=== PATIENT | female | born 1990 | race Caucasian/White ===

== ENCOUNTER 2020-04-27 11:27 | Observation (INO) | payer MEDICAID ==
[~2020-04-27] VITALS: Ht 170.2 cm; Wt 104.8 kg
[~2020-04-27 11:27] MED LIST: BIRTH CONTROL
[2020-04-27] MEDS ORDERED: BETAMETHASONE ACET (6MG/ML) 5ML VIAL IM ONE (12:45)
[2020-04-28] MEDS ORDERED: PREN-96 PO (14:30)
[2020-04-28] MEDS ORDERED: FERR27TA2 PO (14:31)
[2020-04-28] MEDS ORDERED: FERR-7 PO (14:31)
[2020-04-28] MEDS ORDERED: OMEGCAP2 OR (14:32)
[2020-04-28] MEDS ORDERED: HYDR250I6 IM (14:33)
[2020-04-28] MEDS ORDERED: FOLITAB22 PO (14:52)
== END 2020-04-27 13:45 | disposition home or self-care (01) | DRG 566 ==
LOC: LDRP 11:27
PROVIDERS: ADMIT Specialist; ATTEND Specialist
DX: O42.913 Preterm premature rupture of membranes, unspecified as to length of time between rupture and onset of labor, third trimester (principal); Z3A.29 29 weeks gestation of pregnancy
CPT/HCPCS: 59025; 81002; 84112; 96372; G0378; J0702; Q0114

== ENCOUNTER 2020-04-28 13:19 | Observation (INO) | payer MEDICAID ==
[2020-04-28] MEDS ORDERED: BETAMETHASONE ACET (6MG/ML) 5ML VIAL IM ONE (13:30)
[2020-04-28] MEDS ORDERED: PREN-96 PO (14:30)
[2020-04-28] MEDS ORDERED: FERR-7 PO (14:31)
[2020-04-28] MEDS ORDERED: FERR27TA2 PO (14:31)
[2020-04-28] MEDS ORDERED: OMEGCAP2 OR (14:32)
[2020-04-28] MEDS ORDERED: HYDR250I6 IM (14:33)
[2020-04-28] MEDS ORDERED: FOLITAB22 PO (14:52)
== END 2020-04-28 14:24 | disposition home or self-care (01) | DRG 563 ==
LOC: LDRP 13:19
PROVIDERS: ADMIT Specialist; ATTEND Specialist
DX: O60.03 Preterm labor without delivery, third trimester (principal); Z3A.29 29 weeks gestation of pregnancy
CPT/HCPCS: 59025; 81002; 96372; G0378

== ENCOUNTER 2020-05-03 10:47 | Observation (INO) | payer MEDICAID ==
[~2020-05-03 10:47] MED LIST changes: -BIRTH CONTROL; +FERR-7 PO; +FOLITAB22 PO; +HYDR250I6 IM; +OMEGCAP2 OR; +PREN-96 PO
== END 2020-05-03 11:33 | disposition home or self-care (01) | DRG 566 ==
LOC: LDRP 10:47
PROVIDERS: ADMIT Specialist; ATTEND Specialist
DX: O23.43 Unspecified infection of urinary tract in pregnancy, third trimester (principal); O60.03 Preterm labor without delivery, third trimester; O24.410 Gestational diabetes mellitus in pregnancy, diet controlled; Z91.040 Latex allergy status; Z3A.30 30 weeks gestation of pregnancy
CPT/HCPCS: 59025; 81002; 82948; 82962; 87086; 87088; 87186; G0378

== ENCOUNTER 2020-05-09 12:20 | Observation (INO) | payer MEDICAID | END 2020-05-09 13:30 | disposition home or self-care (01) | DRG 563 | LOC: LDRP 12:20 | PROVIDERS: ADMIT Specialist; ATTEND Specialist | DX: O60.03 Preterm labor without delivery, third trimester (principal); Z91.040 Latex allergy status; Z3A.31 31 weeks gestation of pregnancy | CPT/HCPCS: 59025; 81002; 82962; G0378 ==

== ENCOUNTER 2020-05-18 10:54 | Observation (INO) | payer MEDICAID | END 2020-05-18 12:38 | disposition home or self-care (01) | DRG 566 | LOC: LDRP 10:54 | PROVIDERS: ADMIT Specialist; ATTEND Specialist | DX: O24.410 Gestational diabetes mellitus in pregnancy, diet controlled (principal); O60.03 Preterm labor without delivery, third trimester; Z3A.32 32 weeks gestation of pregnancy | CPT/HCPCS: 59025; 76818; 81002; 82948; 82962; G0378 ==

== ENCOUNTER 2020-05-25 10:12 | Observation (INO) | payer MEDICAID | END 2020-05-25 14:20 | disposition home or self-care (01) | DRG 566 | LOC: XYW 10:12 → LDRP 13:06 | PROVIDERS: ADMIT Specialist; ATTEND Specialist | DX: O24.419 Gestational diabetes mellitus in pregnancy, unspecified control (principal); O60.03 Preterm labor without delivery, third trimester | CPT/HCPCS: 59025; 76818; 81002; 82948; 82962; G0378 ==

== ENCOUNTER 2020-05-31 11:18 | Observation (INO) | payer MEDICAID ==
[~2020-05-31] VITALS: Ht 170.2 cm; Wt 104.3 kg
[~2020-05-31 11:18] MED LIST changes: -HYDR250I6 IM
== END 2020-05-31 13:10 | disposition home or self-care (01) | DRG 566 ==
LOC: LDRP 11:18
PROVIDERS: ADMIT Specialist; ATTEND Specialist
DX: O24.410 Gestational diabetes mellitus in pregnancy, diet controlled (principal); O60.03 Preterm labor without delivery, third trimester; Z3A.34 34 weeks gestation of pregnancy
CPT/HCPCS: 59025; 76818; 81002; 82948; 82962; G0378

== ENCOUNTER 2020-06-07 12:09 | Observation (INO) | payer MEDICAID ==
[~2020-06-07] VITALS: Ht 170.2 cm; Wt 102.1 kg
== END 2020-06-07 13:30 | disposition home or self-care (01) ==
LOC: LDRP 12:09
PROVIDERS: ADMIT Specialist; ATTEND Specialist
DX: O60.03 Preterm labor without delivery, third trimester (principal); O24.410 Gestational diabetes mellitus in pregnancy, diet controlled; O99.323 Drug use complicating pregnancy, third trimester; F12.90 Cannabis use, unspecified, uncomplicated; Z91.040 Latex allergy status; Z87.891 Personal history of nicotine dependence; Z3A.35 35 weeks gestation of pregnancy
CPT/HCPCS: 59025; 76818; 82948; 82962; G0378; 81002

== ENCOUNTER 2020-06-13 12:47 | Observation (INO) | payer MEDICAID | END 2020-06-13 14:58 | disposition home or self-care (01) | LOC: LDRP 12:47 | PROVIDERS: ADMIT Specialist; ATTEND Specialist | DX: O24.410 Gestational diabetes mellitus in pregnancy, diet controlled (principal); O60.03 Preterm labor without delivery, third trimester; Z3A.36 36 weeks gestation of pregnancy | CPT/HCPCS: 59025; 76818; 81002; 82948; 82962; G0378 ==

== ENCOUNTER 2020-06-14 19:00 | Observation (INO) | payer MEDICAID ==
[~2020-06-14] VITALS: Ht 170.2 cm; Wt 103.0 kg
== END 2020-06-14 20:56 | disposition home or self-care (01) ==
LOC: LDRP 19:00
PROVIDERS: ADMIT Specialist; ATTEND Specialist
DX: O36.8130 Decreased fetal movements, third trimester, not applicable or unspecified (principal); Z3A.36 36 weeks gestation of pregnancy; Z79.899 Other long term (current) drug therapy
CPT/HCPCS: 59025; 76818; 81002; 82948; 82962; G0378

== ENCOUNTER 2020-06-20 10:17 | Observation (INO) | payer MEDICAID | END 2020-06-20 11:00 | disposition home or self-care (01) | LOC: LDRP 10:17 | PROVIDERS: ADMIT Specialist; ATTEND Specialist | DX: O24.410 Gestational diabetes mellitus in pregnancy, diet controlled (principal); Z3A.37 37 weeks gestation of pregnancy | CPT/HCPCS: 59025; 76818; 81002; 82962; G0378 ==

== ENCOUNTER 2020-06-27 09:32 | Observation (INO) | payer MEDICAID | END 2020-06-27 10:30 | disposition home or self-care (01) | LOC: LDRP 09:32 | PROVIDERS: ADMIT Specialist; ATTEND Specialist | DX: O24.419 Gestational diabetes mellitus in pregnancy, unspecified control (principal); Z3A.38 38 weeks gestation of pregnancy | CPT/HCPCS: 59025; 76818; 81002; 82948; G0378 ==

== ENCOUNTER 2020-06-28 09:30 | Observation (INO) | payer MEDICAID | END 2020-06-28 10:50 | disposition home or self-care (01) | LOC: LDRP 09:30 | PROVIDERS: ADMIT Obstetrics & Gynecology; ATTEND Obstetrics & Gynecology | DX: O62.9 Abnormality of forces of labor, unspecified (principal); O24.419 Gestational diabetes mellitus in pregnancy, unspecified control; R10.9 Unspecified abdominal pain; Z3A.38 38 weeks gestation of pregnancy | CPT/HCPCS: 59025; 81002; 87086; 87088; 87186; G0378 ==

== ENCOUNTER 2020-07-03 00:15 | Observation (INO) | payer MEDICAID ==
[2020-07-03] MEDS ORDERED: LACT. RINGERS/OXYTOCIN 20UNITS 1,000 ML IV ONE (07:01)
[2020-07-03] MEDS ORDERED: LIDOCAINE 2%HCL (LOCAL ANESTH.) INJ 20ML MDV ONE (07:22)
== END 2020-07-03 05:16 | disposition home or self-care (01) ==
LOC: LDRP 00:15
PROVIDERS: ADMIT Specialist; ATTEND Specialist
DX: O62.9 Abnormality of forces of labor, unspecified (principal); O23.43 Unspecified infection of urinary tract in pregnancy, third trimester; O98.813 Other maternal infectious and parasitic diseases complicating pregnancy, third trimester; B37.9 Candidiasis, unspecified; O24.419 Gestational diabetes mellitus in pregnancy, unspecified control; O26.893 Other specified pregnancy related conditions, third trimester; R11.0 Nausea; O99.323 Drug use complicating pregnancy, third trimester; F12.90 Cannabis use, unspecified, uncomplicated; Z87.891 Personal history of nicotine dependence; Z3A.38 38 weeks gestation of pregnancy; Z91.040 Latex allergy status; Z79.899 Other long term (current) drug therapy
CPT/HCPCS: 59025; 76818; 81002; G0378; J2590

== ENCOUNTER 2020-07-03 06:47 | Inpatient (IN) | payer MEDICAID ==
[~2020-07-03] VITALS: Ht 170.2 cm; Wt 103.0 kg
[2020-07-03] MEDS ORDERED: LACT. RINGERS/OXYTOCIN 20UNITS 1,000 ML IV SCH (07:49)
[2020-07-03 08:27] LABS: Basophils # (auto) 0 10 ^3/uL (0-0.2); Basophils % (auto) 0.2 % (0.0-2.0); Eosinophils # (auto) 0 10 ^3/uL (0-0.8); Eosinophils % (auto) 0.4 % (0.0-7.0); Hematocrit 33.7 % (36.0-46.0); Lymphocytes # (auto) 1.3 10 ^3/uL (0.4-5.4); Lymphocytes % (auto) 12.4 % (10.0-50.0); Mean Corpuscular Hemoglobin 28.5 pg (28.0-32.0); Mean Corpuscular Hgb Conc. 32.7 g/dL (32.0-36.0); Mean Corpuscular Volume 87.2 fL (80.0-100.0); Monocytes # (auto) 0.5 10 ^3/uL (0-1.3); Monocytes % (auto) 4.9 % (0.0-12.0); Neutrophils # (auto) 8.6 10 ^3/uL (1.6-8.6); Neutrophils % (auto) 82.1 % (37.0-80.0); Platelet Count (auto) 237 10^3/uL (140-450); Red Blood Cells 3.87 10^6/uL (4.0-5.20); Red Cell Distribution Width 13.8 % (11.8-14.3); White Blood Cell 10.5 10^3/uL (4.4-10.8)
[2020-07-03] MEDS: IBUPROFEN 600 MG TAB PO PRN ×3 (08:39→23:19)
[2020-07-03 08:50] LABS: INR 0.91 (0.9-1.15); Partial Thromboplastin Time 24.9 sec (23.0-31.2)
[2020-07-03 09:00] LABS: Albumin 2.2 g/dL (3.4-5.0); Calcium 8.8 mg/dL (8.5-10.1); Potassium 3.7 mmol/L (3.5-5.1)
[2020-07-03 09:03] LABS: BUN/Creatinine Ratio 17.5; Bilirubin, Total 0.4 mg/dL (0.2-1.0); Total Protein 6.4 g/dL (6.4-8.2); Uric Acid 4.8 mg/dL (2.6-6.0)
[2020-07-03] MEDS ORDERED: PHISODERM TOP SOLN 240ML BTL TOP ONE (10:30)
[2020-07-03] MEDS ORDERED: WITCH HAZEL-GLYCERIN PAD TOP PRN (10:30)
[2020-07-03 11:30] VITALS: BP 115/72
[2020-07-03 13:30] LABS: Urine Bacteria NONE SEEN /hpf (None Seen); Urine Blood 3+ /uL (Negative); Urine Mucus FEW (None Seen); Urine Specific Gravity 1.012 (1.001-1.035); Urine WBC 125 /hpf (0 - 5)
[2020-07-03 13:35] LABS: Alcohol, Urine < 3.0 mg/dL (0-10); Amphetamine Screen, Urine NEGATIVE (NEGATIVE); Barbiturate Scree,Urine NEGATIVE (NEGATIVE); Benzodiazephine Screen, Urine NEGATIVE (NEGATIVE); Cannabinoid Screen, Urine NEGATIVE (NEGATIVE); Cocaine Screen, Urine NEGATIVE (NEGATIVE); Opiate Scree,Urine NEGATIVE (NEGATIVE); Phencyclidine Screen, Urine NEGATIVE (NEGATIVE)
[2020-07-03 15:00] VITALS: BP 101/58
[2020-07-03 18:45] VITALS: BP 119/74
[2020-07-03] MEDS: ACETAMINOPHEN 325 MG TAB PO PRN (19:30)
[2020-07-03 23:00] VITALS: BP 109/60
[2020-07-04 02:39] VITALS: BP 104/88
[2020-07-04] MEDS: ACETAMINOPHEN 325 MG TAB PO PRN (03:04)
[2020-07-04 06:35] VITALS: BP 104/55
== END 2020-07-04 09:23 | disposition home or self-care (01) | DRG 560 ==
LOC: LDRP 06:47
PROVIDERS: ADMIT Specialist; ATTEND Specialist
PROC: 10E0XZZ Delivery of Products of Conception, External Approach (ICD-10-PCS; principal; 2020-07-03)
DX: O69.81X0 Labor and delivery complicated by cord around neck, without compression, not applicable or unspecified (principal); O24.420 Gestational diabetes mellitus in childbirth, diet controlled; Z37.0 Single live birth; Z3A.38 38 weeks gestation of pregnancy; Z20.828 Contact with and (suspected) exposure to other viral communicable diseases; Z88.5 Allergy status to narcotic agent; Z91.040 Latex allergy status
CPT/HCPCS: 36415; 59025; 59409; 80053; 80307; 81001; 81002; 82962; 84112; 84550; 85025; 85610; 85730; 86850; 86900; 86901; 96360; 96361; 96366; G0378

== ENCOUNTER → 2020-08-25 | Day surgery (SDC) | payer MEDICAID ==
[2020-08-21 15:15] LABS: Urine Bacteria MANY /hpf (None Seen); Urine Blood Negative /uL (Negative); Urine Mucus FEW (None Seen); Urine Specific Gravity 1.022 (1.001-1.035); Urine WBC 32 /hpf (0 - 5)
[2020-08-21 15:16] LABS: Basophils # (auto) 0 10 ^3/uL (0-0.2); Basophils % (auto) 0.4 % (0.0-2.0); Eosinophils # (auto) 0.1 10 ^3/uL (0-0.8); Eosinophils % (auto) 2.2 % (0.0-7.0); Hematocrit 37.6 % (36.0-46.0); Hemoglobin 12.7 g/dL (12.2-16.2); Lymphocytes # (auto) 2.4 10 ^3/uL (0.4-5.4); Lymphocytes % (auto) 38.5 % (10.0-50.0); Mean Corpuscular Hemoglobin 29.3 pg (28.0-32.0); Mean Corpuscular Hgb Conc. 33.8 g/dL (32.0-36.0); Mean Corpuscular Volume 86.7 fL (80.0-100.0); Monocytes # (auto) 0.5 10 ^3/uL (0-1.3); Monocytes % (auto) 7.3 % (0.0-12.0); Neutrophils # (auto) 3.2 10 ^3/uL (1.6-8.6); Neutrophils % (auto) 51.6 % (37.0-80.0); Nucleated Red Blood Cells % 0.1 %; Platelet Count (auto) 300 10^3/uL (140-450); Red Blood Cells 4.34 10^6/uL (4.0-5.20); White Blood Cell 6.2 10^3/uL (4.4-10.8)
[2020-08-21 15:32] LABS: INR 0.95 (0.9-1.15); Partial Thromboplastin Time 23.6 sec (23.0-31.2)
[2020-08-21 15:34] LABS: Albumin 3.9 g/dL (3.4-5.0); Calcium 9.4 mg/dL (8.5-10.1); Potassium 3.8 mmol/L (3.5-5.1)
[2020-08-21 15:37] LABS: BUN/Creatinine Ratio 21.3; Bilirubin, Total 0.3 mg/dL (0.2-1.0); Total Protein 7.8 g/dL (6.4-8.2)
[~2020-08-25] VITALS: Ht 170.2 cm; Wt 94.8 kg
[~2020-08-25] MED LIST changes: +DexAMETHasone SOD PHOS 10MG/1ML VIAL INJ ONE; -FERR-7 PO; -FOLITAB22 PO; +GLYCOPYRROLATE 0.2 MG/ML 1ML VIAL ONE; +HYDROmorphone HCL 2 MG/ML VL IV PRN; +HYDROmorphone HCL 2 MG/ML VL ONE; +KETOROLAC TROMETH 30 MG/ML 1ML VIAL ONE; +LACTATED RINGER'S 1,000 ML IV SCH; +LIDOCAINE 2% (LOCAL ANESTH.) PF 5ml SDV ONE; +MEPERIDINE HCL (25 MG/ML) 1ML VIAL ONE; +MIDAZOLAM HCL 1MG/1ML-2 ML VIAL ONE; +NEOSTIGMINE 1 MG/ML INJ (10mg/10ML VIAL) ONE; -OMEGCAP2 OR; +ONDANSETRON HCL 4 MG/2 ML VIAL IV PRN; +ONDANSETRON HCL 4 MG/2 ML VIAL ONE; -PREN-96 PO; +PROPOFOL 10 MG/ML 20 ML IV ONE; +ROCURONIUM 10MG/ML 10ML VIAL IV ONE; +SODIUM CHLORIDE LOCK 10 ML ONE; +ceFAZolin 1GM/50ML 50 ML IV ONE; +ePHEDrine SULFATE 50 MG/ML AMP ONE; +fentaNYL CITRATE 100 MCG/2 ML VL ONE
[2020-08-25 13:25] VITALS: BP 142/82
== END | disposition home or self-care (01) ==
LOC: SUR 09:56
PROVIDERS: ATTEND Specialist
DX: Z30.2 Encounter for sterilization (principal); F32.9 Major depressive disorder, single episode, unspecified; E66.9 Obesity, unspecified; F41.9 Anxiety disorder, unspecified; A63.0 Anogenital (venereal) warts; Z20.828 Contact with and (suspected) exposure to other viral communicable diseases; Z68.37 Body mass index [BMI] 37.0-37.9, adult; Z88.8 Allergy status to other drugs, medicaments and biological substances; Z91.040 Latex allergy status; Z98.890 Other specified postprocedural states; Z79.899 Other long term (current) drug therapy
CPT/HCPCS: 36415; 58671; 80053; 81001; 84702; 85025; 85610; 85730; 86850; 86900; 86901; J0690; J1100; J1170; J1885; J2001; J2175; J2250; J2405; J2704; J3010; J7030; U0003

== ENCOUNTER 2021-07-08 12:22 | Emergency (ER) | payer SELFPAY ==
[~2021-07-08] VITALS: Ht 170.2 cm; Wt 94.8 kg
[2021-07-08 13:06] VITALS: BP 107/66
[2021-07-08 13:56] LABS: Basophils # (auto) 0 10 ^3/uL (0-0.2); Basophils % (auto) 0.2 % (0.0-2.0); Eosinophils # (auto) 0 10 ^3/uL (0-0.8); Eosinophils % (auto) 0.2 % (0.0-7.0); Hematocrit 37.2 % (36.0-46.0); Hemoglobin 12.6 g/dL (12.2-16.2); Lymphocytes # (auto) 1.6 10 ^3/uL (0.4-5.4); Lymphocytes % (auto) 34.4 % (10.0-50.0); Mean Corpuscular Hemoglobin 29.6 pg (28.0-32.0); Mean Corpuscular Hgb Conc. 33.7 g/dL (32.0-36.0); Mean Corpuscular Volume 87.6 fL (80.0-100.0); Monocytes # (auto) 0.3 10 ^3/uL (0-1.3); Monocytes % (auto) 5.7 % (0.0-12.0); Neutrophils # (auto) 2.7 10 ^3/uL (1.6-8.6); Neutrophils % (auto) 59.5 % (37.0-80.0); Nucleated Red Blood Cells % 0.1 %; Red Blood Cells 4.25 10^6/uL (4.0-5.20); Red Cell Distribution Width 12.9 % (11.8-14.3); White Blood Cell 4.6 10^3/uL (4.4-10.8)
[2021-07-08 14:07] LABS: Albumin 3.5 g/dL (3.4-5.0); BUN/Creatinine Ratio 16.7; Bilirubin, Total 0.3 mg/dL (0.2-1.0); Calcium 8.5 mg/dL (8.5-10.1); Total Protein 7.4 g/dL (6.4-8.2)
[2021-07-08] MEDS ORDERED: KETOROLAC TROMETH 60MG/2ML VIAL IM ONE (15:00)
[2021-07-08] MEDS ORDERED: cefTRIAXone SOD 1,000 MG VL IM ONE (15:30)
[2021-07-08] MEDS ORDERED: LIDOCAINE 1% HCL (LOCAL ANESTH.) INJ 20ML MDV ONE (15:45)
== END 2021-07-08 16:12 | disposition home or self-care (01) ==
LOC: ER 12:22
DX: M54.5 Low back pain (principal); N39.0 Urinary tract infection, site not specified; M25.552 Pain in left hip; M25.551 Pain in right hip; M79.7 Fibromyalgia; Z98.51 Tubal ligation status; Z88.6 Allergy status to analgesic agent; Z91.040 Latex allergy status; Z20.822 Contact with and (suspected) exposure to COVID-19
CPT/HCPCS: 36415; 80053; 83690; 84702; 85025; 87426; 96372; 99284; J0696; J1885; J2001